=== PATIENT | female | born 1955 | race Caucasian/White ===

== ENCOUNTER → 2016-06-05 | Outpatient (CLI) | payer OTHER ==
[~2016-06-05] MED LIST: ALBUTEROL17 GM INH; ALPRAZOLAM PO; AMBIEN CR PO; FLEXERIL PO; KLONOPIN PO; LODINE PO; LYRICA PO; NAPROXEN PO; NASONEX17 GM; NEURONTIN PO; PLAQUENIL200 MG PO; PREDNISONE PO; PROZAC PO; SINGULAIR PO; SPIRIVA18 MCG INH; SYMBICORT INH; WELLBUTRIN SR PO
[2016-06-05 12:12] LABS: URINE APPEARANCE CLEAR; URINE BILIRUBIN NEG (NEG); URINE BLOOD NEG (NEG); URINE COLOR YELLOW; URINE GLUCOSE NEG (NEG); URINE KETONE NEG (NEG); URINE LEUKOCYTE ESTERASE NEG (NEG); URINE NITRATE NEG (NEG); URINE PH 5.5 (5-8); URINE PROTEIN NEG (NEG); URINE UROBILINOGEN 0.2 MG/DL (NEG)
[2016-06-05 12:14] LABS: URINE SOURCE CLEAN CATCH
[2016-06-05 13:08] LABS: BUN/CREATININE RATIO 19.09; CALCIUM SERUM 9.3 mg/dL (8.4-10.2); CREATININE SERUM 1.1 mg/dL (0.6-1.4); GLOM FILT RATE Estimated 54.2 mL/min (>60); PHOSPHOROUS 3.9 mg/dL (2.5-4.6); POTASSIUM 4.4 mmol/L (3.5-5.1)
[2016-06-13 07:16] LABS: CALCIUM (PTHINTACT) 9.6 mg/dL (8.6-10.4)
== END | disposition home or self-care (01) ==
LOC: CLAB 11:07
PROVIDERS: Internal Medicine Nephrology
DX: N18.3 Chronic kidney disease, stage 3 (moderate) (principal)
CPT/HCPCS: 36415; 80048; 81003; 82306; 82310; 82570; 82728; 83540; 83550; 83970; 84100

== ENCOUNTER → 2016-11-06 | Outpatient (CLI) | payer OTHER ==
--- NOTE | ~2016-11-06 | CR63 ---
[facility] A Service of [facility] & [facility] RADIOLOGY TEXT RESULTS PATIENT: EZRA MYLES LOCATION: [facility] : 53 UNIT #: [id number] AGE: [address]: Jan Dillard MD SEX: F ORDER DR: [id number] [facility] [address]. [place], [place] [address] [id number] O MR#: [id number] Acc #: [id number] NAME: EZRA MYLES : 1955 SEX: F STUDY DATE/TIME: 11/06/2016 14:50 UNIT: [facility] ROOM: STUDY DESCRIPTION: CR Chest 2 View Attending Physician: Jan Dillard M.D. Referring Physician: Jan Dillard M.D. Ordering Physician: Jan Dillard M.D. Primary Care Physician: Jan Dillard M.D. MEDICAL IMAGING REPORT This report is preliminary unless electronic signature is present EXAM Chest 2 views dated 11/06/2016. COMPARISON None. HISTORY Shortness of air for 7 months. Patient had flu. History of hypertension. FINDINGS Two views of the chest were obtained. Lungs are well-aerated. Heart, mediastinum and bones do not demonstrate any significant abnormality. IMPRESSION No demonstrable acute abnormality. Dictated by... Haroldo Collado M.D. THIS IS AN ELECTRONICALLY VERIFIED REPORT Haroldo Collado M.D. at 11/07/2016 2:51 PM CPR/ea TD: 11/07/2016 14:07 JOB #: [id number] MEDICAL IMAGING REPORT Page 1 of 1 COPY
== END | disposition home or self-care (01) ==
LOC: CRAD 14:40
DX: R06.02 Shortness of breath (principal)
CPT/HCPCS: 71020

== ENCOUNTER → 2016-11-08 | Outpatient (CLI) | payer OTHER ==
--- NOTE | ~2016-11-08 | MY29 ---
[facility] A Service of [facility] RADIOLOGY TEXT RESULTS PATIENT: EZRA MYLES LOCATION: [facility] : 53 UNIT #: [id number] AGE: [address]: Jan Dillard MD SEX: F ORDER DR: [id number] [place] [id number] [facility]. [place], [place] [address] [id number] O MR#: [id number] Acc #: [id number] NAME: EZRA MYLES : 1955 SEX: F STUDY DATE/TIME: 11/08/2016 14:40 UNIT: [facility] ROOM: STUDY DESCRIPTION: [facility] SCREENING W/ CAD BILAT Attending Physician: Jan Dillard M.D. Referring Physician: Jan Dillard M.D. Ordering Physician: Jan Dillard M.D. Primary Care Physician: Jan Dillard M.D. MEDICAL IMAGING REPORT This report is preliminary unless electronic signature is present EXAMINATION Screening mammogram with CAD DATE: 11/08/2016 HISTORY Family history of breast cancer in a grandmother. No personal history of breast cancer or current complaints. COMPARISON Bilateral screening mammogram 05/22/2015, 07/04/2010. FINDINGS CC and MLO views were obtained of each breast utilizing digital technique and reviewed with an FDA-approved CAD device. Scattered fibroglandular densities are present bilaterally. Parenchymal pattern appears stable.. No new or developing nodules are identified. Groupings of calcifications within the upper outer right breast are stable. Biopsy clip in the upper outer right breast is stable. IMPRESSION BIRADS 2. Benign findings. Routine bilateral screening mammogram is recommended in 1 year. Patients over the age of 40 are entered into a reminder system with target due date for the next mammogram. A result letter will also be sent to the patient. BIRADS: 2, benign findings. Dictated by... [facility] A Service [facility] RADIOLOGY TEXT RESULTS PATIENT: EZRA MYLES LOCATION: [facility] : 53 UNIT #: [id number] AGE: [address]: Jan Dillard MD SEX: F ORDER DR: Dinah Youssef M.D. THIS IS AN ELECTRONICALLY VERIFIED REPORT Dinah Youssef M.D. at 11/11/2016 8:51 AM REGINE/irasema TD: 11/09/2016 03:57 JOB #: [id number] MEDICAL IMAGING REPORT Page 1 of 1 COPY
== END | disposition home or self-care (01) ==
LOC: CWCC 14:25
DX: Z12.31 Encounter for screening mammogram for malignant neoplasm of breast (principal); Z80.3 Family history of malignant neoplasm of breast
CPT/HCPCS: G0202